=== PATIENT | female | born 1985 | race Caucasian/White ===

== ENCOUNTER 2018-04-15 15:28 | Emergency (ER) | payer SELFPAY ==
[2018-04-15] MEDS: DIPHENHYDRAMINE 50 MG INJ IM (15:48)
[2018-04-15] MEDS ORDERED: DEXAMETHASONE 10 MG/ML 1 ML INJ IM (16:00)
[2018-04-15] MEDS: DEXAMETHASONE 4 MG/ML 5 ML INJ IM (16:16)
== END 2018-04-15 16:22 | disposition home or self-care (01) ==
LOC: FTE 16:22
DX: R21 Rash and other nonspecific skin eruption (principal); J45.909 Unspecified asthma, uncomplicated
CPT/HCPCS: 96372; 99284-25